=== PATIENT | female | born 1995 | race Caucasian/White ===

== ENCOUNTER → 2017-05-24 14:06 | Observation (INO) ==
[2017-05-24 13:02] LABS: Bilirubin,Urine Negative (Negative); Blood,Urine Negative (Negative); Clarity,Urine Clear (Clear); Color,Urine Yellow (Yellow); Glucose,Urine (UA) Normal (Normal); Ketones,Urine Negative (Negative); Leukocyte Esterase,Urine Negative (Negative); Nitrite,Urine Negative (Negative); Protein,Urine Negative (Neg-Trace); Specific Gravity,Urine 1.007 (1.010-1.025); Urobilinogen,Urine Normal (Normal)
[2017-05-24 13:09] LABS: Amphetamine Screen,Urine Negative ng/mL (Cutoff=1000); Barbiturate Screen,Urine Negative ng/mL (Cutoff=200); Benzodiazepines Screen,Urine Negative ng/mL (Cutoff=200); Cannabinoid Screen,Urine Negative ng/mL (Cutoff = 50); Cocaine Screen,Urine Negative ng/mL (Cutoff= 300); Opiate Screen,Urine Negative ng/mL (Cutoff=300); Phencyclidine Screen,Urine Negative ng/mL (Cutoff=25)
--- NOTE | 2017-05-24 13:45 | OB/GYN Progress Note ---
Date of Encounter: 05/25/17 Time of Encounter: 13:20 - Assessment and Plan (1) 20 weeks gestation of Status: Acute (2) Back pain affecting Status: Acute Patient had negative CVA tenderness b/l. UA showed no signs of infection. No protein or blood present in urine. UDS was negative. FHR of 150's with variable decelerations which are appropriate for gestational age. - Patient will be discharged home. Qualifiers: Trimester: second trimester Qualified Code(s): O26.892 - Other specified related conditions, second trimester; M54.9 - Dorsalgia, unspecified; M54.9 - Dorsalgia, unspecified Subjective - Subjective Principal diagnosis: Lower back pain Interval history: Patient is a 22 YO female and 20 6/7 weeks gestation that presents for pre- term labor evaluation. She says that she has been having B/L lower back pain since 11:00 am this morning. She says the pain radiates to around her abdomen bilaterally and lasts for a minute. She says the pain would come on randomly. She says walking makes the pain worse and resting relieves it. She admits to good movement. She denies any vaginal fluid leakage or bleeding. She denies any regular contractions. She admits to WADSWORTH earlier this morning. She also admits to vision blurriness but she says she has had this before the due to her not wearing her contacts. She denies chest pain. She admits to nausea throughout her , but she denies any vomiting. She denies fever, dysuria, hematuria, or diarrhea. HepBSAg: non-reactive (03/02/17) HIV Ag/Ab: non-reactive Rubella Ab: positive Varicella Ab: positive patient evaluated with the resident and agree with note patient is to follow up in the office Antepartum ROS: movement normal, no loss of fluid, no vaginal bleeding, no contractions Objective - Vital Signs Vital Signs: Intake and Output 05/24/17 05/24/17 05/24/17 00:59 07:59 15:59 Other: Weight 85.9 kg Patient Weight 05/24/17 22:59 Weight 85.9 kg BP: 128/66 HR: 101 - Exam Auscultation: bilateral: normal Abdomen: Present: normal appearance, soft, gravid. Absent: tenderness Uterus: Present: normal, firm Comments: No CVA tenderness B/L. CV: RRR +S1 +S2 - Labs Labs: Abnormal lab results Ur Specific [place] 1.007 (1.010-1.025) L 05/24/17 12:51
== END | disposition home or self-care (01) ==
LOC: 1NENULAB
PROVIDERS: ADMIT Obstetrics & Gynecology; ATTEND Obstetrics & Gynecology

== ENCOUNTER → 2017-06-30 15:20 | Observation (INO) ==
[2017-06-30 14:28] LABS: Bilirubin,Urine Negative (Negative); Blood,Urine Trace (Negative); Clarity,Urine Cloudy (Clear); Color,Urine Yellow (Yellow); Glucose,Urine (UA) Normal (Normal); Ketones,Urine Negative (Negative); Leukocyte Esterase,Urine Large (Negative); Nitrite,Urine Negative (Negative); Protein,Urine Negative (Neg-Trace); Specific Gravity,Urine 1.016 (1.010-1.025); Urobilinogen,Urine Normal (Normal)
[2017-06-30 14:33] LABS: Amphetamine Screen,Urine Negative ng/mL (Cutoff=1000); Barbiturate Screen,Urine Negative ng/mL (Cutoff=200); Benzodiazepines Screen,Urine Negative ng/mL (Cutoff=200); Cannabinoid Screen,Urine Negative ng/mL (Cutoff = 50); Cocaine Screen,Urine Negative ng/mL (Cutoff= 300); Opiate Screen,Urine Negative ng/mL (Cutoff=300); Phencyclidine Screen,Urine Negative ng/mL (Cutoff=25)
--- NOTE | 2017-06-30 14:35 | OB/GYN Progress Note ---
Date of Encounter: 06/30/17 Time of Encounter: 14:34 - Assessment and Plan (1) Vaginal discharge Current Visit: Yes Status: Acute Vaginal discharge this AM. No burning or itching. monitoring reassuring - baseline 145 with variability - category I Vaginosis panel pending GC/Chl cultures pending UA shows no nitrites, + leuk esterase, many squamous epithelial cells Will call pt with final results of lab work (2) 26 weeks gestation of Current Visit: Yes Status: Acute Subjective - Subjective Principal diagnosis: Vaginal Discharge Interval history: Ms. Aaron is a 22 year old female at 26w1d who presents with greenish/ yellow vaginal discharge beginning this AM. Denies burning or itching. She reports one episode of spotting yesterday. Denies other vaginal bleeding, LOF, or contractions. Reports good movement. Denies other symptoms, denies fevers, chills, headaches, blurry vision, chest pain, dyspnea, N/V, dysuria, or lower extremity edema. Antepartum ROS: movement normal, no loss of fluid, no contractions Objective - Vital Signs Vital Signs: Intake and Output 06/29/17 06/30/17 06/30/17 23:59 07:59 15:59 Other: Weight 94.1 kg Patient Weight 06/30/17 23:59 Weight 94.1 kg - Exam FHR: auscultation normal, category 1 FHR comments: Baseline 145 with variability. No contractions noted. I examined this patient and my medical decision-making was reviewed with the Resident Physician. I agree with the documented findings, disposition and treatment plan as described except to the extent set forth below. MILI Castillo Auscultation: bilateral: normal Abdomen: Present: normal appearance, soft, gravid Uterus: Present: normal, firm Cervical dilation: Closed per visual exam Comments: Frothy green discharge on speculum exam. No lesions noted. Os closed.
[2017-06-30 14:36] LABS: Bacteria,Urine Many per hpf (None-Few); Hyaline Casts,Urine None Seen per lpf (None-Few); RBC,Urine 0-3 per hpf (0-3); Squamous Epithelial Cell,Urine Many per lpf (None-Few); WBC,Urine 50-100 per hpf (0-3)
--- NOTE | 2017-06-30 14:56 | Discharge Summary ---
Date of Encounter: 06/30/17 Time of Encounter: 14:56 - Discharge Medications Home Medications: Multi Tablet 06/30/17 [History] Allergies/Adverse Reactions: 3 Allergy/AdvReac Type Severity Reaction Status Date / Time shellfish derived Allergy Swelling Verified 04/21/17 22:47 of Lip/Tongue/Throat Data Procedures and tests throughout hospitalization: Laboratory Tests 06/30/17 06/30/17 14:00 14:00 Urine Color Yellow Urine Clarity Cloudy A Urine pH 6.0 Ur Specific [place] 1.016 Urine Protein Negative Urine Glucose (UA) Normal Urine Ketones Negative Urine Blood Trace H Urine Nitrite Negative Urine Bilirubin Negative Urine Urobilinogen Normal Ur Leukocyte Esterase Large H Urine Microscopic RBC 0-3 Urine Microscopic WBC 50-100 H Ur Squamous Epith Cells Many H Urine Bacteria Many H Hyaline Casts None Seen Ur Culture Indicated? NO Urine Opiates Screen Negative Ur Barbiturates Screen Negative Ur Phencyclidine Scrn Negative Ur Amphetamines Screen Negative U Benzodiazepines Scrn Negative Urine Cocaine Screen Negative U Marijuana (THC) Screen Negative Labs on day of discharge: Labs from last 24 hours 06/30/17 06/30/17 14:00 14:00 Urine Color Yellow Urine Clarity Cloudy A Urine pH 6.0 Ur Specific [place] 1.016 Urine Protein Negative Urine Glucose (UA) Normal Urine Ketones Negative Urine Blood Trace H Urine Nitrite Negative Urine Bilirubin Negative Urine Urobilinogen Normal Ur Leukocyte Esterase Large H Urine Microscopic RBC 0-3 Urine Microscopic WBC 50-100 H Ur Squamous Epith Cells Many H Urine Bacteria Many H Hyaline Casts None Seen Ur Culture Indicated? NO Urine Opiates Screen Negative Ur Barbiturates Screen Negative Ur Phencyclidine Scrn Negative Ur Amphetamines Screen Negative U Benzodiazepines Scrn Negative Urine Cocaine Screen Negative U Marijuana (THC) Screen Negative Date of admission: 06/30/17 13:43 Primary care physician: Christofer Bright CNP Discharging clinician: Unique Carroll Anticipated date of discharge: 06/30/17 - Patient Status Disposition: Home, Self-Care Condition: Good Functional capacity at discharge: independent ambulation - Discharge Instructions Follow Up With: Christofer Bright CNP [Primary Care Provider] - Tyler Guajardo MD [Partnered Physician] - - Diet and Activity Activity: increase activity as tolerated Diet: regular diet 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 no contractions noted - VTE Reasons for not Prescribing Prophylaxis: Treatment not Indicated - Low risk for VTE
[2017-06-30 16:07] LABS: Candida DNA Not Detected (Not Detect); Gardnerella DNA ***DETECTED*** (Not Detect); Trichomonas DNA Not Detected (Not Detect)
== END | disposition home or self-care (01) ==
LOC: 1NENULAB
PROVIDERS: ADMIT Obstetrics & Gynecology; ATTEND Obstetrics & Gynecology

== ENCOUNTER 2017-07-28 14:13 | Observation (INO) ==
[2017-07-28 15:04] LABS: Amphetamine Screen,Urine Negative ng/mL (Cutoff=1000); Barbiturate Screen,Urine Negative ng/mL (Cutoff=200); Benzodiazepines Screen,Urine Negative ng/mL (Cutoff=200); Cannabinoid Screen,Urine Negative ng/mL (Cutoff = 50); Cocaine Screen,Urine Negative ng/mL (Cutoff= 300); Opiate Screen,Urine Negative ng/mL (Cutoff=300); Phencyclidine Screen,Urine Negative ng/mL (Cutoff=25)
--- NOTE | 2017-07-28 15:05 | OB/GYN Progress Note ---
Date of Encounter: 07/28/17 Time of Encounter: 15:00 - Assessment and Plan (1) Vaginal discharge Current Visit: Yes Status: Acute Nitrazine negative. No odor, itching, or burning No urinary symptoms No contractions on monitoring monitoring reassuring (2) 30 weeks gestation of Current Visit: Yes Status: Acute Subjective - Subjective Principal diagnosis: leakage of fluid Interval history: Pt is a 22 year old female at 30w1d presenting to L&D with concerns about watery-like vaginal discharge this morning. It was associated with some sharp perineal pain that has now resolved. She denies odor, itching, or dysuria. No intercourse in the past 48 hours. She reports good movement. Denies contractions or vaginal bleeding. Reports no complications with this . Denies fevers, chills, headaches, vision changes, dyspnea, abdominal pain, or edema. I examined this patient and my medical decision-making was reviewed with the Resident Physician. I agree with the documented findings, disposition and treatment plan as described except to the extent set forth below. MILI Castillo Antepartum ROS: new complaints, loss of fluid, movement normal, no vaginal bleeding, no contractions Objective - Exam FHR: auscultation normal, category 1 FHR comments: Baseline 145 with variability No contractions noted Auscultation: bilateral: normal Abdomen: Present: normal appearance, soft, gravid Uterus: Present: normal, firm
--- NOTE | 2017-07-28 15:18 | Discharge Summary ---
Date of Encounter: 07/28/17 Time of Encounter: 15:18 - Discharge Diagnosis (1) 30 weeks gestation of Priority: Primary Status: Acute Comments: admitted for observation (2) Vaginal discharge Priority: Secondary Status: Acute Comments: Negative nitrazine - Discharge Medications Home Medications: Multi Tablet 06/30/17 [History] Allergies/Adverse Reactions: 3 Allergy/AdvReac Type Severity Reaction Status Date / Time shellfish derived Allergy Swelling Verified 04/21/17 22:47 of Lip/Tongue/Throat Data Procedures and tests throughout hospitalization: Laboratory Tests 07/28/17 14:40 Urine Opiates Screen Negative Ur Barbiturates Screen Negative Ur Phencyclidine Scrn Negative Ur Amphetamines Screen Negative U Benzodiazepines Scrn Negative Urine Cocaine Screen Negative U Marijuana (THC) Screen Negative Labs on day of discharge: Labs from last 24 hours 07/28/17 14:40 Urine Opiates Screen Negative Ur Barbiturates Screen Negative Ur Phencyclidine Scrn Negative Ur Amphetamines Screen Negative U Benzodiazepines Scrn Negative Urine Cocaine Screen Negative U Marijuana (THC) Screen Negative Date of admission: 07/28/17 14:13 Primary care physician: PCP NONE Discharging clinician: Unique Carroll Anticipated date of discharge: 07/28/17 - Patient Status Disposition: Home, Self-Care Condition: Good - Discharge Instructions Follow Up With: NONE,PCP [Primary Care Provider] - Tyler Guajardo MD [Partnered Physician] - - Diet and Activity Activity: increase activity as tolerated Diet: regular diet 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 CAt. 1 tracing. - VTE Reasons for not Prescribing Prophylaxis: Treatment not Indicated - Low risk for VTE
== END 2017-07-28 15:30 | disposition home or self-care (01) ==
LOC: 1NENULAB
PROVIDERS: ADMIT Student in an Organized Health Care Education/Training Program; ATTEND Student in an Organized Health Care Education/Training Program

== ENCOUNTER 2017-08-19 10:18 | Observation (INO) ==
[2017-08-19 11:04] LABS: Basophils % 0.2 %; Eosinophils # 0.1 K/mcL (0.0-0.6); Hematocrit 31.9 % (35.3-44.9); Hemoglobin 10.3 g/dL (11.5-15.4); Immature Granulocytes % 0.8 % (0-4); Lymphocytes # 1.6 K/mcL (0.6-4.6); Lymphocytes % 15.7 %; Mean Corpuscular HGB Conc 32.3 g/dL (31.6-35.5); Mean Corpuscular Hemoglobin 28.9 pg (28.0-33.3); Mean Corpuscular Volume 89.6 fL (83.0-100.0); Mean Platelet Volume 10.1 fL (9.4-12.4); Monocytes # 0.9 K/mcL (0.0-1.3); Neutrophils # 7.3 K/mcL (1.6-8.9); Platelet Count 259 K/mcL (140-400); Red Blood Count 3.56 M/mcL (3.82-4.97); Red Cell Distribution Width 12.8 % (11.5-14.5); Segmented Neutrophils % 73.3 %
[2017-08-19 11:07] LABS: Amphetamine Screen,Urine Negative ng/mL (Cutoff=1000); Barbiturate Screen,Urine Negative ng/mL (Cutoff=200); Benzodiazepines Screen,Urine Negative ng/mL (Cutoff=200); Cannabinoid Screen,Urine Negative ng/mL (Cutoff = 50); Cocaine Screen,Urine Negative ng/mL (Cutoff= 300); Opiate Screen,Urine Negative ng/mL (Cutoff=300); Phencyclidine Screen,Urine Negative ng/mL (Cutoff=25)
[2017-08-19 11:13] LABS: Protein/Creatinine Ratio,Urine 0.3 mg/mg (0.00-0.20)
[2017-08-19 11:24] LABS: Alanine Aminotransferase 8 Units/L (7-52); Aspartate Amino Transferase 16 Units/L (13-39); BUN/Creatinine Ratio 12 (6-26); Blood Urea Nitrogen 7 mg/dL (6-20); Lactate Dehydrogenase 142 Units/L (140-271); eGFR For African Americans > 60 (> 60); eGFR For Non-African Americans > 60 (> 60)
[2017-08-19] MEDS ORDERED: Betamethasone Acet/SodPhos 6 MG/ML MDV IM SCH (11:30)
--- NOTE | 2017-08-19 11:48 | OB/GYN Progress Note ---
Date of Encounter: 08/19/17 Time of Encounter: 11:43 - Assessment and Plan (1) Proteinuria affecting in third trimester Current Visit: Yes Status: Acute Assessment: 22 year old presenting with history of WADSWORTH with vision changes and elevated BP since Thursday at 33 weeks + 2 days GA Plan: Discharge home today BMZ administered today - pt will have repeat dose administered tomorrow Awaiting results of 24 hour urine dropped off today Follow up in office tomorrow for BMZ administration and then as scheduled Subjective - Subjective Principal diagnosis: PIH evaluation Interval history: Current complicated by recent hypertension and dizziness with WADSWORTH since Thursday. GBS unknown Rubella immune Varicella immune PMH: unremarkable Meds: vitamin Ferrous sulfate Allergies: shellfish PSH: none HPI: Pt sent here today for PIH evaluation. She reports having WADSWORTH with vision changes on Thursday, now resolved. She also reports intermittent dizziness. Denies RUQ pain, vaginal bleeding, LOF, nausea, vomiting. Endorses good FM. Antepartum ROS: other (Reports history of WADSWORTH, dizziness, blurry vision since Thursday) Objective - Vital Signs Vital Signs: Intake and Output 08/18/17 08/19/17 08/19/17 23:59 07:59 15:59 Other: Weight 99.9 kg Patient Weight 08/19/17 23:59 Weight 99.9 kg - Exam FHR: category 1 FHR comments: Baseline 150 moderate variability accelerations present no decelerations no contractions Auscultation: bilateral: normal Abdomen: Present: normal appearance, soft, gravid Uterus: Present: normal - Labs Labs: Abnormal lab results RBC 3.56 M/mcL (3.82-4.97) L 08/19/17 10:50 Hgb 10.3 g/dL (11.5-15.4) L 08/19/17 10:50 Hct 31.9 % (35.3-44.9) L 08/19/17 10:50 Creatinine 0.57 mg/dL (0.60-1.20) L 08/19/17 10:50 Protein/Creatinin Ratio 0.30 mg/mg (0.00-0.20) H 08/19/17 10:50
== END 2017-08-19 13:10 | disposition home or self-care (01) ==
LOC: 1NENULAB
PROVIDERS: ADMIT Obstetrics & Gynecology; ATTEND Obstetrics & Gynecology

== ENCOUNTER 2017-09-05 17:30 | Observation (INO) ==
--- NOTE | 2017-09-05 17:55 | OB/GYN Progress Note ---
Date of Encounter: 09/05/17 Time of Encounter: 17:53 - Assessment and Plan (1) 35 weeks gestation of Current Visit: Yes Status: Acute (2) Uterine contractions during Current Visit: Yes Status: Acute No cervical change on serial exams. Patient discharged home with labor precautions. Patient verbalizes understanding (3) NST (non-stress test) reactive Current Visit: Yes Status: Acute Baseline 145 Subjective - Subjective Interval history: 35+5 weeks gestation presents to triage for labor evaluation. Patient states she was walking around [facility] and started to feel some abdominal tightening with a little bit of pain and discomfort, so she decided to present to triage for evaluation since she was nearby. Patient reports good movement, denies vaginal bleeding, or leaking of fluid. course only complicated with occasional elevated blood pressures. Patient has received betamethasone course Antepartum ROS: movement normal, contractions, no loss of fluid, no vaginal bleeding Objective - Exam FHR: auscultation normal FHR comments: Baseline 145 Abdomen: Present: normal appearance, soft, gravid Cervical dilation: /-3
[2017-09-05 21:09] LABS: Amphetamine Screen,Urine Negative ng/mL (Cutoff=1000); Barbiturate Screen,Urine Negative ng/mL (Cutoff=200); Benzodiazepines Screen,Urine Negative ng/mL (Cutoff=200); Cannabinoid Screen,Urine Negative ng/mL (Cutoff = 50); Cocaine Screen,Urine Negative ng/mL (Cutoff= 300); Opiate Screen,Urine Negative ng/mL (Cutoff=300); Phencyclidine Screen,Urine Negative ng/mL (Cutoff=25)
== END 2017-09-05 18:57 | disposition home or self-care (01) ==
LOC: 1NENULAB
PROVIDERS: ADMIT Obstetrics & Gynecology; ATTEND Obstetrics & Gynecology

== ENCOUNTER 2017-09-25 21:58 | Observation (INO) ==
[2017-09-25 22:34] LABS: Basophils % 0.2 %; Eosinophils # 0.1 K/mcL (0.0-0.6); Eosinophils % 1.3 %; Hematocrit 32.7 % (35.3-44.9); Hemoglobin 10.7 g/dL (11.5-15.4); Immature Granulocytes % 0.7 % (0-4); Lymphocytes # 2.4 K/mcL (0.6-4.6); Mean Corpuscular HGB Conc 32.7 g/dL (31.6-35.5); Mean Corpuscular Hemoglobin 27.9 pg (28.0-33.3); Mean Corpuscular Volume 85.2 fL (83.0-100.0); Mean Platelet Volume 9.9 fL (9.4-12.4); Monocytes % 9.8 %; Platelet Count 281 K/mcL (140-400); Red Blood Count 3.84 M/mcL (3.82-4.97); Red Cell Distribution Width 12.9 % (11.5-14.5)
[2017-09-25 22:41] LABS: Amphetamine Screen,Urine Negative ng/mL (Cutoff=1000); Barbiturate Screen,Urine Negative ng/mL (Cutoff=200); Benzodiazepines Screen,Urine Negative ng/mL (Cutoff=200); Cannabinoid Screen,Urine Negative ng/mL (Cutoff = 50); Cocaine Screen,Urine Negative ng/mL (Cutoff= 300); Opiate Screen,Urine Negative ng/mL (Cutoff=300); Phencyclidine Screen,Urine Negative ng/mL (Cutoff=25)
[2017-09-25 22:53] LABS: Alanine Aminotransferase 9 Units/L (7-52); Aspartate Amino Transferase 14 Units/L (13-39); BUN/Creatinine Ratio 17 (6-26); Blood Urea Nitrogen 10 mg/dL (6-20); Lactate Dehydrogenase 137 Units/L (140-271); Uric Acid 3.1 mg/dL (2.3-7.6); eGFR For African Americans > 60 (> 60); eGFR For Non-African Americans > 60 (> 60)
[2017-09-25 22:54] LABS: Creatinine,Urine 146 mg/dL; Protein/Creatinine Ratio,Urine 0.13 mg/mg (0.00-0.20)
--- NOTE | 2017-09-25 23:37 | Discharge Summary ---
Date of Encounter: 09/25/17 Time of Encounter: 23:37 - Discharge Diagnosis (1) 38 weeks gestation of Priority: Primary Status: Acute Comments: admitted for observation (2) Visual disturbances Priority: Secondary Status: Acute Comments: PIH evaluation WNL - Discharge Medications Allergies/Adverse Reactions: 3 Allergy/AdvReac Type Severity Reaction Status Date / Time shellfish derived Allergy Swelling Verified 09/25/17 22:12 of Lip/Tongue/Throat Data Procedures and tests throughout hospitalization: Laboratory Tests 09/25/17 09/25/17 09/25/17 22:04 22:04 22:27 WBC 10.7 RBC 3.84 Hgb 10.7 L Hct 32.7 L MCV 85.2 MCH 27.9 L MCHC 32.7 RDW 12.9 Plt Count 281 MPV 9.9 Immature Gran % 0.7 Seg Neutrophils % 66.0 Lymphocytes % 22.0 Monocytes % 9.8 Eosinophils % 1.3 Basophils % 0.2 Neutrophils # 7.0 Lymphocytes # 2.4 Monocytes # 1.0 Eosinophils # 0.1 Basophils # 0.0 BUN 10 Creatinine 0.59 L Est GFR ( Amer) > 60 Est GFR (Non-Af Amer) > 60 BUN/Creatinine Ratio 17 Uric Acid 3.1 AST 14 ALT 9 Lactate Dehydrogenase 137 L Urine Creatinine 146 Protein/Creatinin Ratio 0.13 Urine Total Protein 19 H Urine Opiates Screen Negative Ur Barbiturates Screen Negative Ur Phencyclidine Scrn Negative Ur Amphetamines Screen Negative U Benzodiazepines Scrn Negative Urine Cocaine Screen Negative U Marijuana (THC) Screen Negative Labs on day of discharge: Labs from last 24 hours 09/25/17 09/25/17 09/25/17 22:27 22:04 22:04 WBC 10.7 RBC 3.84 Hgb 10.7 L Hct 32.7 L MCV 85.2 MCH 27.9 L MCHC 32.7 RDW 12.9 Plt Count 281 MPV 9.9 Immature Gran % 0.7 Seg Neutrophils % 66.0 Lymphocytes % 22.0 Monocytes % 9.8 Eosinophils % 1.3 Basophils % 0.2 Neutrophils # 7.0 Lymphocytes # 2.4 Monocytes # 1.0 Eosinophils # 0.1 Basophils # 0.0 BUN 10 Creatinine 0.59 L Est GFR ( Amer) > 60 Est GFR (Non-Af Amer) > 60 BUN/Creatinine Ratio 17 Uric Acid 3.1 AST 14 ALT 9 Lactate Dehydrogenase 137 L Urine Creatinine 146 Protein/Creatinin Ratio 0.13 Urine Total Protein 19 H Urine Opiates Screen Negative Ur Barbiturates Screen Negative Ur Phencyclidine Scrn Negative Ur Amphetamines Screen Negative U Benzodiazepines Scrn Negative Urine Cocaine Screen Negative U Marijuana (THC) Screen Negative Date of admission: 09/25/17 21:58 Primary care physician: PCP NONE Discharging clinician: Unique Carroll Anticipated date of discharge: 09/25/17 - Patient Status Disposition: Home, Self-Care Condition: Good Functional capacity at discharge: independent ambulation - Discharge Instructions Follow Up With: NONE,PCP [Primary Care Provider] - Tyler Guajardo MD [Partnered Physician] - - Diet and Activity Activity: increase activity as tolerated Diet: regular diet 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 Patient states she seen spots around 1999. Patient reports she has not slept well for past 4-5 days. Patient denies contractions, LOF or VB. Patient reports +FM. Time Attestation: Total time spent providing and/or coordinating discharge services: Time Spent: Less than 30 minutes Exam - Constitutional General appearance IM: A&O X 3, pleasant, answers questions appropriately - Respiratory Respiratory exam: Present: CTAB - Cardiovascular Cardiovascular exam IM: Present: RRR, +S1, +S2 - GI/Abdominal GI/Abdominal exam IM: normal bowel sounds - Extremities Exam Extremities exam IM: Present: full ROM, normal capillary refill, normal inspection - Neurological Exam Neurological exam: alert, oriented X3, reflexes normal - Other Additional findings: FHR 140 bpm moderate variability +15x15 accels no decels noted. No contractions. Cat. 1 tracing. - VTE Reasons for not Prescribing Prophylaxis: Treatment not Indicated - Low risk for VTE
== END 2017-09-25 23:48 | disposition home or self-care (01) ==
LOC: 1NENULAB
PROVIDERS: ADMIT Advanced Practice Midwife; ATTEND Advanced Practice Midwife

== ENCOUNTER 2017-10-01 04:34 | Inpatient (IN) ==
[2017-10-01] MEDS ORDERED: Ondansetron 4 MG/2 ML VIAL IVP PRN (05:04)
[2017-10-01] MEDS ORDERED: Naloxone 0.4 MG/ML INJ IVP PRN (05:04)
[2017-10-01] MEDS ORDERED: Famotidine 20 MG/2 ML VIAL IVP PRN (05:04)
[2017-10-01] MEDS ORDERED: *HR* Nalbuphine 20 MG/ML AMPUL IVP PRN (05:04)
[2017-10-01] MEDS ORDERED: Oxytocin 20 units/ LR 1000 mL 20 UNIT/1,000 ML BAG IVC SCH ×2 (05:15→15:45)
--- NOTE | 2017-10-01 05:24 | OB/GYN History & Physical ---
Date of Encounter: 10/01/17 Time of Encounter: 05:15 Assessment and Plan (1) 39 weeks gestation of Current visit: Yes Status: Acute Admit to labor and delivery for labor/induction Labs per usual protocol Intermittent monitoring okay Plans natural childbirth Anticipate Dr. Hall is the OB on-call and available as needed (2) Uterine contractions during Current visit: Yes Status: Acute History of Present Illness Chief complaint: contractions HPI: Ms. Aaron is a 22 year old female at 39 weeks and 3 days gestation with an LIV of 10/05/17 by early ultrasound. She was scheduled for an induction at 8 AM today, but presents now with reports of contractions starting at 6 PM last night. She states she feels contractions "every few minutes" but is unsure of the exact timing. She denies leakage of fluid, vaginal bleeding and reports positive movement. Her course has been uncomplicated. Her records are chart and reviewed. Labs: A+ GBS - Hep B - HIV - T. palladium - Rubella immune Varicella immune Past Med Surg Social Fam HX - Past Medical History Medical history: no medical history Psychiatric history: no psych history - Social History Smoking Status: Former smoker Smokeless Tobacco Status: No Alcohol use: none Drug use: none - Family History Mother Adopted: No Age: 36 Living Status: Still Living Hx Family Cardiac Disorders: No Hx Family Respiratory Disorders: No Hx Family Cancer: No Hx Family GI Disorders: No Hx Family Genitourinary Disorders: No Hx Family Endocrine Disorder: No Hx Family Musculoskeletal Disorders: No Hx Family Neuromuscular Disorders: No Hx Family Neurologic Disorders: No Hx Family HEENT Disorders: No Hx Family Autoimmune Disorders: No Hx Family Reproductive Disorders: No Hx Family Psychosocial Disorders: No Hx Family Medical Disorders: No Obstetrical History - Pregnancies : 1 Para: 0 Term: 0 : 0 Ab's: 0 Livin Medications and Allergies 3 Allergy/AdvReac Type Severity Reaction Status Date / Time shellfish derived Allergy Swelling Verified 09/25/17 22:12 of Lip/Tongue/Throat Review of System OB All systems PM: reviewed and no additional remarkable complaints except as stated Exam - Vital Signs Vital signs: Initial Vital Signs Temp Pulse Resp BP 97.8 F 110 16 121/75 10/01/17 04:53 10/01/17 04:53 10/01/17 04:53 10/01/17 04:53 - Constitutional Constitutional: well developed, well nourished, average body habitus, moderate distress - HEENT HEENT: Normocephaly, Mucus Membranes Moist - Neck Neck exam: full ROM - Lungs Respiratory exam: CTAB - Cardiovascular Cardiovascular exam: RRR, +S1, +S2 - Breasts Breast: bilateral: normal - Abdomen Abdomen: Present: bowel sounds normal, gravid, non tender - Extremities Extremities exam: radial pulses palpable and symmetrical - Vulva Vulva: bilateral: normal - Vagina Vagina: Present: normal moisture - Cervix Dilation: 3 (Jonathan Gray RN) Effacement: 80 Station: -1 - Uterus Uterus exam: Present: normal size, normal contour - Anus/Rectum Anus/Rectum: Present: normal perianal skin Results All other labs normal. - VTE Reasons for not Prescribing Prophylaxis: Treatment not Indicated - Low risk for VTE
[2017-10-01] MEDS ORDERED: Metoclopramide 10 MG/2 ML VIAL IVP PRN (05:39)
[2017-10-01] MEDS ORDERED: Lidocaine 1% 20 ML MDV ID PRN (05:39)
[2017-10-01 05:47] LABS: Amphetamine Screen,Urine Negative ng/mL (Cutoff=1000); Barbiturate Screen,Urine Negative ng/mL (Cutoff=200); Benzodiazepines Screen,Urine Negative ng/mL (Cutoff=200); Cannabinoid Screen,Urine Negative ng/mL (Cutoff = 50); Cocaine Screen,Urine Negative ng/mL (Cutoff= 300); Opiate Screen,Urine Negative ng/mL (Cutoff=300); Phencyclidine Screen,Urine Negative ng/mL (Cutoff=25)
[2017-10-01] MEDS: Ringers Solution, Lactated 1,000 ML IVC SCH ×2 (05:47→10:58)
[2017-10-01 06:04] LABS: Basophils % 0.2 %; Eosinophils # 0.1 K/mcL (0.0-0.6); Eosinophils % 0.5 %; Hemoglobin 11.2 g/dL (11.5-15.4); Immature Granulocytes % 0.3 % (0-4); Lymphocytes % 13.8 %; Mean Corpuscular HGB Conc 32.9 g/dL (31.6-35.5); Mean Corpuscular Hemoglobin 27.9 pg (28.0-33.3); Mean Corpuscular Volume 84.6 fL (83.0-100.0); Mean Platelet Volume 10.1 fL (9.4-12.4); Monocytes % 6.7 %; Neutrophils # 11.4 K/mcL (1.6-8.9); Platelet Count 273 K/mcL (140-400); Red Blood Count 4.02 M/mcL (3.82-4.97); Red Cell Distribution Width 13.2 % (11.5-14.5); Segmented Neutrophils % 78.5 %
--- NOTE | 2017-10-01 06:26 | OB Labor Progress Note ---
Date of Encounter: 10/01/17 Time of Encounter: 06:23 Labor Progress Note - Subjective Subjective: Pt resting with nubain. Reports she is still aware of contractions but they are much less painful. - Cervix Cervix: 4-5/80/0 - Heart Tones Heart Tones: Baseline 130 Minimal to moderate variability Accelerations present 15x15 Decelerations absent FHR Category II - [place]: Unable to track contractions at this time via toco. Manual palpation places contractions every 3-5 and palpate moderate - Interventions Interventions: SVE - Plan Plan: Continue expectant management Frequent position changes May have epidural upon request although is planning NCB Anticipate
[2017-10-01] MEDS ORDERED: *HR* FentaNYL (PF) 100 MCG/2 ML VIAL ONE (09:27)
[2017-10-01] MEDS ORDERED: Epidural Premix (fent/bupiv) 110 ML EP ONE (09:28)
[2017-10-01] MEDS ORDERED: *HR* FentaNYL (PF) 100 MCG/2 ML VIAL EP ONE (11:04)
[2017-10-01] MEDS ORDERED: *HR* Ropivacaine/PF 0.2% 20 ML VIAL EP ONE (11:04)
[2017-10-01] MEDS ORDERED: EPHEDrine 50 MG/ML VIAL IVP PRN (11:04)
--- NOTE | 2017-10-01 11:08 | Anesthesia Evaluation PreOp ---
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 Other Medical History: Denies Any Significant HX Anesthesia History: No Prior Anesthetic Complications : Yes (39 weeks, ) Alcohol Use: none Drug use: none Medications and Allergies No Known Home Drugs 10/01/17 [History] 3 Allergy/AdvReac Type Severity Reaction Status Date / Time shellfish derived Allergy Swelling Verified 09/25/17 22:12 of Lip/Tongue/Throat - Meds/Allergy Pre-op Review Medications Reviewed: Yes Allergies Reviewed: Yes Beta Blockers on Current Med List: No Anesthesia Results - Labs 10/01/17 05:06 Anesthesia Exam O2 Sat Height 1.73 m Weight 109.5 kg Vital Signs Temp Pulse Resp BP 97.8 F 110 16 121/75 10/01/17 04:53 10/01/17 04:53 10/01/17 04:53 10/01/17 04:53 Height: 68 Weight: 109 - HEENT Pupil (Motor): Pupils equal Mallampati: II Teeth: Normal Oral Opening: Greater than 3 - 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
--- NOTE | 2017-10-01 11:11 | Anesthesia Procedures ---
Date of Encounter: 10/01/17 Time of Encounter: 09:30 Procedures: Anesthesia - Epidural/Spinal Patient ID/Chart reviewed: Yes Patient examined: Yes OB Eval: Gestational age: 39 OB Eval: : 1 OB Eval: Dilated at (cm): 7 OB Eval: Contractions: Non-stressed pattern Consent Obtained: Yes Supplemental Oxygen: None/Room Air Site Prep: Aseptic Technique Patient position: upright Local Anesthetic: Lidocaine 1% Touhy Needle Gauge: 18 Touhy Needle Depth (cm): 6 Catheter Depth at Skin (cm): 12 Test Dose Result: Negative Loading Dose: Fentanyl (mcg): 100 Loading Dose: Other: 8cc 0.2% ropivicaine Loading Dose Administered: Thru Touhy Needle Infusion Med: 0.125% Bupivacaine w/ 2 mcg/ml Fentanyl Infusion Rate (mls/hr): [address]: Tegaderm Interspace Used: L3-L4 Loss of Resistance (ANAYA): Yes Blood: No CSF: No Paresthesia: No
[2017-10-01] MEDS ORDERED: Epidural Premix (fent/bupiv) 110 ML EP SCH (11:15)
[2017-10-01] MEDS ORDERED: Lidocaine -MPF 2% 5 ML VIAL ONE (13:24)
--- NOTE | 2017-10-01 13:32 | Anesthesia Progress Note ---
Date of Encounter: 10/01/17 Time of Encounter: 13:29 Anesthesia Note - Note Note: 10/01/17 13:29 Called to patient beside for c/o pain on the left side 6/10 during contractions. Epidural catheter intact at 12cm. Lidocaine 2% 7cc injected into epidural catheter.
--- NOTE | 2017-10-01 14:07 | OB Labor Progress Note ---
Date of Encounter: 10/01/17 Time of Encounter: 14:05 Labor Progress Note - Subjective Subjective: resting comfortable with epidural. - Cervix Cervix: Rim - Heart Tones Heart Tones: 125/moderate/+accels/-decels - Wind Ridge Wind Ridge: 2-3 - Plan Plan: Continue current management, Anticipate
[2017-10-01] MEDS ORDERED: Acetaminophen 325 MG TABLET PO PRN (15:43)
[2017-10-01] MEDS ORDERED: Lanolin 28 GM TUBE TP PRN (15:43)
[2017-10-01] MEDS ORDERED: Benzocaine/Menthol 56 GM AEROSOL SPRAY TP PRN (15:43)
--- NOTE | 2017-10-01 16:17 | OB/GYN Procedure Note ---
Delivery - Delivery Date: 10/01/17 Provider: Tyler Guajardo Intrapartum events: none Delivery induction: none Delivery augmentation: pitocin Delivery monitor: external FHT, external uterine Anesthesia: local, epidural Estimated Blood Loss: 200 - Infant (s) A Infant Delivery Date: 10/01/17 Infant Delivery Time: 15:29 Presentation: vertex Position: OA Route of delivery: Gender: Male Viability: Viable Pounds: 8 Ounces: 9 Weight Gram: 3895 kg at 1 minute: 5 at 5 mins: 8 Shoulder Dystocia: not encountered Shoulder Dystocia Maneuvers: Chelo maneuver Specimens collected: cord blood Placenta: spontaneous Cord: nuchal cord, 3 umbilical vessels, nuchal cut - Repair Episiotomy: none Laceration Description: Perineal - 1st Degree, Superficial - Complications Delivery complications: none Delivery comments: Pt presents in spontaneous labor with SROM. Labor was augmented with pitocin. Pt progressed to complete and began maternal bearing down efforts. Deep variable decelerations noted while pushing. Pushed to of liveborn male vertex delivered OA, tight nuchal cord identified and was cut by Dr. Guajardo. Shoulders and body easily followed. Infant placed on maternal abdomen and instantly taken to warmer. APGARS 5/8. Placenta delivered spontaneously intact (kristie). 1st degree laceration repaired with 3-0 monocryl. EBL 200. Mother and baby left bonding skin to skin stable in L&D. - Disposition Mom disposition: stable in LDR [place] disposition: stable in LDR
[2017-10-01] MEDS: Ibuprofen 600 MG TABLET PO PRN (20:24)
[2017-10-02] MEDS: Ibuprofen 600 MG TABLET PO PRN (03:14)
[2017-10-02 04:45] LABS: Basophils % 0.3 %; Eosinophils # 0.2 K/mcL (0.0-0.6); Eosinophils % 1.4 %; Hematocrit 29.6 % (35.3-44.9); Immature Granulocytes % 0.4 % (0-4); Lymphocytes # 2.3 K/mcL (0.6-4.6); Lymphocytes % 17.1 %; Mean Corpuscular HGB Conc 32.4 g/dL (31.6-35.5); Mean Corpuscular Hemoglobin 28.2 pg (28.0-33.3); Mean Corpuscular Volume 86.8 fL (83.0-100.0); Mean Platelet Volume 10.2 fL (9.4-12.4); Monocytes # 1.1 K/mcL (0.0-1.3); Monocytes % 8.3 %; Neutrophils # 9.9 K/mcL (1.6-8.9); Platelet Count 223 K/mcL (140-400); Red Blood Count 3.41 M/mcL (3.82-4.97); Red Cell Distribution Width 13.2 % (11.5-14.5); Segmented Neutrophils % 72.5 %
[2017-10-02 05:02] LABS: Hemoglobin 9.6 g/dL (11.5-15.4)
[2017-10-02 07:49] VITALS: BP 106/86
--- NOTE | 2017-10-02 08:26 | Discharge Summary ---
Date of Encounter: 10/02/17 Time of Encounter: 08:22 - Discharge Diagnosis (1) Vaginal delivery Priority: Primary Status: Acute Comments: Pt meeting milestones. 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 (2) anemia Priority: Secondary Status: Acute Comments: HOme on iron - Discharge Medications Prescriptions: Ibuprofen [Motrin] 600 mg PO Q6HR PRN #30 tablet PRN Reason: Cramping Docusate [Colace] 100 mg PO BID #30 capsule Ferrous Sulfate 325 mg PO DAILY #30 tablet Home Medications: Benzocaine/Menthol Ke[place]bey [Dermoplast Keasbey] 1 appl TP QID PRN aerosol 10/02/17 [Rx] Docusate [Colace] 100 mg PO BID #30 capsule 10/02/17 [Rx] Ferrous Sulfate 325 mg PO DAILY #30 tablet 10/02/17 [Rx] Ibuprofen [Motrin] 600 mg PO Q6HR PRN #30 tablet 10/02/17 [Rx] Vit/FA 1 each PO DAILY tablet 10/02/17 [Rx] Allergies/Adverse Reactions: 3 Allergy/AdvReac Type Severity Reaction Status Date / Time shellfish derived Allergy Swelling Verified 09/25/17 22:12 of Lip/Tongue/Throat Data Procedures and tests throughout hospitalization: Laboratory Tests 10/01/17 10/01/17 10/01/17 05:06 05:20 12:21 WBC 14.6 H RBC 4.02 Hgb 11.2 L Hct 34.0 L MCV 84.6 MCH 27.9 L MCHC 32.9 RDW 13.2 Plt Count 273 MPV 10.1 Immature Gran % 0.3 Seg Neutrophils % 78.5 Lymphocytes % 13.8 Monocytes % 6.7 Eosinophils % 0.5 Basophils % 0.2 Neutrophils # 11.4 H Lymphocytes # 2.0 Monocytes # 1.0 Eosinophils # 0.1 Basophils # 0.0 POC Glucose 91 H Urine Opiates Screen Negative Ur Barbiturates Screen Negative Ur Phencyclidine Scrn Negative Ur Amphetamines Screen Negative U Benzodiazepines Scrn Negative Urine Cocaine Screen Negative U Marijuana (THC) Screen Negative 10/02/17 04:07 WBC 13.7 H RBC 3.41 L Hgb 9.6 L D Hct 29.6 L MCV 86.8 MCH 28.2 MCHC 32.4 RDW 13.2 Plt Count 223 MPV 10.2 Immature Gran % 0.4 Seg Neutrophils % 72.5 Lymphocytes % 17.1 Monocytes % 8.3 Eosinophils % 1.4 Basophils % 0.3 Neutrophils # 9.9 H Lymphocytes # 2.3 Monocytes # 1.1 Eosinophils # 0.2 Basophils # 0.0 POC Glucose Urine Opiates Screen Ur Barbiturates Screen Ur Phencyclidine Scrn Ur Amphetamines Screen U Benzodiazepines Scrn Urine Cocaine Screen U Marijuana (THC) Screen Labs on day of discharge: Labs from last 24 hours 10/02/17 10/01/17 04:07 12:21 WBC 13.7 H RBC 3.41 L Hgb 9.6 L D Hct 29.6 L MCV 86.8 MCH 28.2 MCHC 32.4 RDW 13.2 Plt Count 223 MPV 10.2 Immature Gran % 0.4 Seg Neutrophils % 72.5 Lymphocytes % 17.1 Monocytes % 8.3 Eosinophils % 1.4 Basophils % 0.3 Neutrophils # 9.9 H Lymphocytes # 2.3 Monocytes # 1.1 Eosinophils # 0.2 Basophils # 0.0 POC Glucose 91 H Date of admission: 10/01/17 04:34 Consults: 10/01/17 15:43 Consult to Parimutuel Ticket Checker [CONS] Routine Comment: Vaginal delivery, consult needed Discharging clinician: Isabel Bassett Anticipated date of discharge: 10/02/17 - Patient Status Disposition: Home, Self-Care Condition: Good Functional capacity at discharge: independent ambulation Overall status at discharge: patient is progressing back to baseline - Discharge Instructions - Diet and Activity Activity: increase activity as tolerated Diet: regular diet Hospital Course Reason for admission: active labor Delivery: Episiotomy: none Laceration: 1st degree Other procedures: none complications: none Discharge diagnosis: IUP at term delivered baby: male Hospital course: - Delivery Date: 10/01/17 Provider: Tyler Guajardo Intrapartum events: none Delivery induction: none Delivery augmentation: pitocin Delivery monitor: external FHT, external uterine Anesthesia: local, epidural Estimated Blood Loss: 200 - Infant (s) Infant A Delivery Date: 10/01/17 Delivery Time: 15:29 Presentation: vertex Position: OA Route of delivery: Gender: Male Viability: Viable Pounds: 8 Ounces: 9 Weight Gram: 3895 kg at 1 minute: 5 at 5 mins: 8 Shoulder Dystocia: not encountered Shoulder Dystocia Maneuvers: Chelo maneuver Specimens collected: cord blood Placenta: spontaneous Cord: nuchal cord, 3 umbilical vessels, nuchal cut - Repair Episiotomy: none Laceration Description: Perineal - 1st Degree, Superficial - Complications Delivery complications: none - Disposition Mom disposition: home PPD#1 Robinson disposition: home with mother, bottle feeding Time Attestation: Total time spent providing and/or coordinating discharge services: Time Spent: Less than 30 minutes Exam - Constitutional Vitals: Temp Pulse Resp BP Pulse Ox 98.2 F 90 16 106/86 98 10/02/17 07:48 10/02/17 07:48 10/02/17 07:48 10/02/17 07:48 10/02/17 07:48 General appearance IM: A&O X 3 - Respiratory Respiratory exam: Present: CTAB - Cardiovascular Cardiovascular exam IM: Present: RRR, +S1, +S2 - GI/Abdominal GI/Abdominal exam IM: soft - Uterine Tone: Firm Uterus Position: At Umbilicus - Extremities Exam Extremities exam IM: Present: pedal edema (mild bilaterally) - Neurological Exam Neurological exam: normal gait, oriented X3 - Psychiatric Additional comments: reports good mood - Other Additional findings: Pt planning to start nuvaring at her PPV.
[2017-10-02] MEDS ORDERED: Prenatal Vit/FA 1 EACH TABLET PO SCH (09:00)
== END 2017-10-02 16:45 | disposition home or self-care (01) | DRG 560 ==
LOC: 1NENULAB 04:34 → 1NENUOBS 17:17
PROVIDERS: ADMIT Obstetrics & Gynecology; ATTEND Obstetrics & Gynecology